=== PATIENT | female | born 1990 | race Caucasian/White ===

== ENCOUNTER 2017-09-24 14:49 | Observation (INO) | payer MEDICAID ==
[~2017-09-24] VITALS: Ht 152.4 cm; Wt 55.0 kg
[2017-09-24 15:43] LABS: BASOPHILS # (AUTO) 0.03 x10^3/uL (0-0.1); BASOPHILS % (AUTO) 1 % (0-1); EOSINOPHILS # (AUTO) 0.06 x10^3/uL (0-0.4); EOSINOPHILS % (AUTO) 1 % (1-7); LYMPHOCYTES # (AUTO) 1.24 x10^3/uL (1-3.4); LYMPHOCYTES % (AUTO) 22 % (22-44); MD NO; MEAN CORPUSCULAR HEMOGLOBIN 32.3 pg (27.0-34.8); MEAN CORPUSCULAR HGB CONC 33.3 g/dL (32.4-35.8); MEAN CORPUSCULAR VOLUME 97.1 fL (80-100); MEAN PLATELET VOLUME 8.2 fL (7.4-10.4); MONOCYTES # (AUTO) 0.29 x10^3/uL (0.2-0.8); MONOCYTES % (AUTO) 5 % (2-9); NEUTROPHILS # (AUTO) 3.91 x10^3/uL (1.8-6.8); NEUTROPHILS % (AUTO) 71 % (42-75); PLATELET COUNT 164 x10^3/uL (130-400); RED BLOOD COUNT 4.37 x10^6/uL (3.82-5.3); RED CELL DISTRIBUTION WIDTH 13.8 % (9.6-15.2)
[2017-09-24 15:55] LABS: ALBUMIN 3.8 g/dL (3.4-5.0); ANION GAP 8 mmol/L (5-15); CALCIUM 8.6 mg/dL (8.5-10.1); CHLORIDE 109 mmol/L (98-107)
[2017-09-24 16:18] LABS: ACETAMINOPHEN < 2 mcg/mL (10-30); ALANINE AMINOTRANSFERASE 26 U/L (12-78); ALKALINE PHOSPHATASE 44 U/L (45-117); BILIRUBIN,TOTAL 0.5 mg/dL (0.2-1.0); CREATININE 0.61 mg/dL (0.55-1.02); SALICYLATE LEVEL 3.1 mg/dL (2.8-20.0)
[2017-09-24 16:27] LABS: AMPHETAMINE SCREEN, URINE Negative (Negative); BARBITURATE SCREEN, URINE Negative (Negative); BENZODIAZEPINE SCREEN, URINE Negative (Negative); CANNABINOID SCREEN, URINE Negative (Negative); COCAINE SCREEN, URINE Negative (Negative); METHADONE SCREEN, URINE Negative (Negative); OPIATE SCREEN, URINE Negative (Negative)
[2017-09-24] MEDS ORDERED: HALOPERIDOL 5 MG/ML ONE (19:44)
[2017-09-24] MEDS ORDERED: DIPHENHYDRAMINE 50 MG/ML, 1ML ONE (19:44)
[2017-09-24] MEDS ORDERED: DIPHENHYDRAMINE 50 MG/ML, 1ML IM ONE (20:00)
[2017-09-24] MEDS ORDERED: ZIPRASIDONE 20 MG INJ IM ONE (20:00)
[2017-09-24] MEDS ORDERED: HALOPERIDOL 5 MG/ML IM ONE (20:00)
[2017-09-24] MEDS ORDERED: LORazepam 1MG TABLET PO PRN (22:00)
[2017-09-24] MEDS ORDERED: POTASSIUM CHLORIDE 20 MEQ TAB.ER.PRT PO ONE (22:00)
[2017-09-24] MEDS ORDERED: ACETAMINOPHEN 325 MG TABLET PO PRN (22:00)
[2017-09-24] MEDS ORDERED: ZIPRASIDONE 20 MG INJ IM PRN (22:00)
[2017-09-24] MEDS ORDERED: ZIPRASIDONE 20MG CAPSULE PO PRN (22:00)
[2017-09-24] MEDS ORDERED: DOCUSATE 100 MG CAPSULE PO PRN (22:00)
[2017-09-24 22:13] LABS: FREE T4 (FREE THYROXINE) 1.02 ng/dL (0.76-1.46); THYROID STIMULATING HORMONE 0.884 mIU/L (0.358-3.740)
[2017-09-25] MEDS ORDERED: POTASSIUM CHLORIDE 20 MEQ TAB.ER.PRT ONE (09:20)
[2017-09-25] MEDS ORDERED: LORazepam 2 MG/ML, 1ML ONE (21:47)
[2017-09-25] MEDS: LORazepam 2 MG/ML, 1ML IM PRN (21:51)
[2017-09-26] MEDS ORDERED: ONDANSETRON ODT 4 MG ONE ×2 (11:50→17:45)
[2017-09-26] MEDS: ONDANSETRON ODT 4 MG PO PRN ×2 (11:53→17:47)
[2017-09-26] MEDS ORDERED: ALBU18HF INH (12:35)
[2017-09-26] MEDS ORDERED: LANS30TA6 PO (12:39)
[2017-09-26] MEDS ORDERED: TIOT18CA INH (12:39)
[2017-09-26] MEDS ORDERED: MOME13HF2 INH (12:39)
[2017-09-26] MEDS ORDERED: OLAN5TAB3 PO (12:41)
[2017-09-26] MEDS ORDERED: TEMPLATE NON-FORMULARY MED. (Lansoprazole** (Prevacid**) 30 MG) PO SCH (13:00)
[2017-09-26] MEDS ORDERED: LORazepam 2 MG/ML, 1ML ONE (13:01)
[2017-09-26] MEDS: LORazepam 2 MG/ML, 1ML IM PRN ×2 (13:10→22:32)
[2017-09-26] MEDS ORDERED: ALBUTEROL SULFATE 2.5MG/0.5ML NPPB PRN (15:30)
[2017-09-26] MEDS: IPRATROPIUM 0.5 MG/2.5 ML INHA NPPB SCH ×2 (15:30→22:10)
[2017-09-26] MEDS ORDERED: IPRATROPIUM 0.5 MG/2.5 ML INHA ONE (17:23)
[2017-09-26 21:09] VITALS: BP 106/76
[2017-09-26] MEDS: ALBUTEROL SULFATE 2.5 MG/3 ML NPPB PRN (22:10)
[2017-09-26] MEDS: FLUTICASONE/VILANTEROL 100-25MCG/INH INH SCH (22:18)
[2017-09-27 03:39] LABS: CULTURE INDICATED? YES; MICROSCOPIC INDICATED
[2017-09-27] MEDS: ONDANSETRON ODT 4 MG PO PRN ×2 (03:45→11:29)
[2017-09-27] MEDS: IPRATROPIUM 0.5 MG/2.5 ML INHA NPPB SCH ×4 (03:47→20:05)
[2017-09-27 07:07] VITALS: BP 94/59
[2017-09-27] MEDS: LORazepam 2 MG/ML, 1ML IM PRN ×2 (07:14→19:29)
[2017-09-27] MEDS: OMEPRAZOLE 20 MG CAPSULE.DR PO SCH (08:22)
[2017-09-27] MEDS: FLUTICASONE/VILANTEROL 100-25MCG/INH INH SCH ×2 (08:22→20:47)
[2017-09-27 19:43] VITALS: BP 104/64
[2017-09-27] MEDS: ALBUTEROL SULFATE 2.5 MG/3 ML NPPB PRN (20:05)
[2017-09-27] MEDS ORDERED: OLANZAPINE 5 MG TABLET PO SCH (21:00)
[2017-09-28] MEDS: IPRATROPIUM 0.5 MG/2.5 ML INHA NPPB SCH ×3 (03:30→09:17)
[2017-09-28 07:21] VITALS: BP 93/57
[2017-09-28] MEDS: FLUTICASONE/VILANTEROL 100-25MCG/INH INH SCH (09:13)
[2017-09-28] MEDS: OMEPRAZOLE 20 MG CAPSULE.DR PO SCH (09:14)
[2017-09-28] MEDS ORDERED: LORazepam INTENSOL 2 MG/ML BC PRN (13:00)
[2017-09-28] MEDS: LORazepam INTENSOL 2 MG/ML BC PRN ×2 (13:57→18:21)
[2017-09-28] MEDS: ALBUTEROL SULFATE 2.5 MG/3 ML NPPB PRN (15:40)
== END 2017-09-28 19:17 ==
LOC: ED 19:14 → INTOOBSV 21:05 → EDIP 21:05 → 2N 09-26 21:08
PROVIDERS: ADMIT Internal Medicine; ATTEND Internal Medicine
DX: T14.91XA Suicide attempt, initial encounter (principal); T42.4X2A Poisoning by benzodiazepines, intentional self-harm, initial encounter; K21.9 Gastro-esophageal reflux disease without esophagitis; J45.909 Unspecified asthma, uncomplicated; F17.200 Nicotine dependence, unspecified, uncomplicated; F29 Unspecified psychosis not due to a substance or known physiological condition; Y92.89 Other specified places as the place of occurrence of the external cause; Y93.89 Activity, other specified; Y99.8 Other external cause status
CPT/HCPCS: 36415; 80053; 80307; 80329; 81001; 84439; 84443; 84703; 85025; 87086; 93005; 94640; 96372; 99285; G0378; J1200; J1630; J2060; Q0162; J7613; J7644; G0480

== ENCOUNTER 2017-11-05 17:34 | Emergency (ER) | payer MEDICAID ==
[~2017-11-05] VITALS: Ht 162.6 cm; Wt 60.0 kg
[~2017-11-05 17:34] MED LIST: ALBU18HF INH; LANS30TA6 PO; MOME13HF2 INH; OLAN5TAB3 PO; TIOT18CA INH
[2017-11-05 17:51] VITALS: BP 102/77
[2017-11-05] MEDS ORDERED: LORA-446 PO (18:41)
[2017-11-05] MEDS ORDERED: ONDA4TAB10 PO (18:41)
[2017-11-05 18:46] LABS: BASOPHILS # (AUTO) 0.03 x10^3/uL (0-0.1); BASOPHILS % (AUTO) 1 % (0-1); EOSINOPHILS # (AUTO) 0.04 x10^3/uL (0-0.4); EOSINOPHILS % (AUTO) 1 % (1-7); LYMPHOCYTES # (AUTO) 1.31 x10^3/uL (1-3.4); LYMPHOCYTES % (AUTO) 18 % (22-44); MD NO; MEAN CORPUSCULAR HEMOGLOBIN 33.3 pg (27.0-34.8); MEAN CORPUSCULAR HGB CONC 34.3 g/dL (32.4-35.8); MEAN CORPUSCULAR VOLUME 97.1 fL (80-100); MEAN PLATELET VOLUME 7.9 fL (7.4-10.4); MONOCYTES # (AUTO) 0.44 x10^3/uL (0.2-0.8); MONOCYTES % (AUTO) 6 % (2-9); NEUTROPHILS # (AUTO) 5.41 x10^3/uL (1.8-6.8); NEUTROPHILS % (AUTO) 75 % (42-75); PLATELET COUNT 181 x10^3/uL (130-400); RED BLOOD COUNT 4.39 x10^6/uL (3.82-5.3); RED CELL DISTRIBUTION WIDTH 13.7 % (9.6-15.2)
[2017-11-05 18:57] LABS: ALANINE AMINOTRANSFERASE 23 U/L (12-78); ALBUMIN 3.9 g/dL (3.4-5.0); ANION GAP 8 mmol/L (5-15); CALCIUM 8.7 mg/dL (8.5-10.1); CHLORIDE 108 mmol/L (98-107); SALICYLATE LEVEL 2.3 mg/dL (2.8-20.0)
[2017-11-05 19:03] LABS: ALKALINE PHOSPHATASE 44 U/L (45-117); BILIRUBIN,TOTAL 0.9 mg/dL (0.2-1.0); CREATININE 0.74 mg/dL (0.55-1.02); TOTAL PROTEIN 7.4 g/dL (6.4-8.2)
[2017-11-05 19:08] LABS: ACETAMINOPHEN < 2 mcg/mL (10-30)
[2017-11-05 19:23] LABS: AMPHETAMINE SCREEN, URINE Negative (Negative); BARBITURATE SCREEN, URINE Negative (Negative); BENZODIAZEPINE SCREEN, URINE Negative (Negative); CANNABINOID SCREEN, URINE Positive (Negative); COCAINE SCREEN, URINE Negative (Negative); METHADONE SCREEN, URINE Negative (Negative); OPIATE SCREEN, URINE Negative (Negative)
[2017-11-05] MEDS ORDERED: LORazepam 1MG TABLET ONE (21:12)
[2017-11-05] MEDS ORDERED: LORazepam 1MG TABLET PO ONE (21:30)
[2017-11-06] MEDS ORDERED: ALBUTEROL SULFATE 2.5 MG/3 ML NPPB ONE
[2017-11-06] MEDS ORDERED: ALBUTEROL SULFATE 2.5 MG/3 ML ONE (00:03)
== END 2017-11-06 01:39 | disposition home or self-care (01) ==
LOC: ED 19:03
DX: R45.851 Suicidal ideations (principal); F32.9 Major depressive disorder, single episode, unspecified; F41.9 Anxiety disorder, unspecified; Z79.899 Other long term (current) drug therapy
CPT/HCPCS: 36415; 80053; 80307; 80329; 84703; 85025; 94640; 99284; J7613; G0480

== ENCOUNTER 2017-11-13 20:48 | Emergency (ER) | payer MEDICAID ==
[~2017-11-13] VITALS: Ht 157.5 cm; Wt 70.0 kg
[~2017-11-13 20:48] MED LIST changes: +LORA-446 PO; +ONDA4TAB10 PO
[2017-11-13 21:05] LABS: BASOPHILS # (AUTO) 0.03 x10^3/uL (0-0.1); BASOPHILS % (AUTO) 0 % (0-1); EOSINOPHILS # (AUTO) 0.06 x10^3/uL (0-0.4); EOSINOPHILS % (AUTO) 1 % (1-7); LYMPHOCYTES # (AUTO) 1.71 x10^3/uL (1-3.4); LYMPHOCYTES % (AUTO) 22 % (22-44); MD NO; MEAN CORPUSCULAR HEMOGLOBIN 32.5 pg (27.0-34.8); MEAN CORPUSCULAR HGB CONC 33.5 g/dL (32.4-35.8); MEAN CORPUSCULAR VOLUME 97.1 fL (80-100); MEAN PLATELET VOLUME 8.3 fL (7.4-10.4); MONOCYTES # (AUTO) 0.09 x10^3/uL (0.2-0.8); MONOCYTES % (AUTO) 1 % (2-9); NEUTROPHILS # (AUTO) 5.77 x10^3/uL (1.8-6.8); NEUTROPHILS % (AUTO) 75 % (42-75); PLATELET COUNT 211 x10^3/uL (130-400); RED BLOOD COUNT 4.51 x10^6/uL (3.82-5.3); RED CELL DISTRIBUTION WIDTH 13.6 % (9.6-15.2)
[2017-11-13 21:07] VITALS: BP 99/71
[2017-11-13 21:17] LABS: ALBUMIN 3.9 g/dL (3.4-5.0); ANION GAP 7 mmol/L (5-15); CALCIUM 8.4 mg/dL (8.5-10.1); CHLORIDE 108 mmol/L (98-107); CREATININE 0.82 mg/dL (0.55-1.02); SALICYLATE LEVEL 3.2 mg/dL (2.8-20.0)
[2017-11-13 21:18] LABS: ACETAMINOPHEN < 2 mcg/mL (10-30)
[2017-11-13 21:53] LABS: AMPHETAMINE SCREEN, URINE Negative (Negative); BARBITURATE SCREEN, URINE Negative (Negative); BENZODIAZEPINE SCREEN, URINE Negative (Negative); CANNABINOID SCREEN, URINE Positive (Negative); COCAINE SCREEN, URINE Negative (Negative); METHADONE SCREEN, URINE Negative (Negative); OPIATE SCREEN, URINE Negative (Negative)
[2017-11-13] MEDS ORDERED: PROP10TA PO (22:03)
[2017-11-13] MEDS ORDERED: RISP2TAB91 PO (22:03)
== END 2017-11-14 03:28 | disposition home or self-care (01) ==
LOC: ED 22:09
DX: F33.0 Major depressive disorder, recurrent, mild (principal); J45.909 Unspecified asthma, uncomplicated; F43.10 Post-traumatic stress disorder, unspecified; Z79.899 Other long term (current) drug therapy
CPT/HCPCS: 36415; 80048; 80307; 80329; 82040; 84703; 85025; 99284; G0480